=== PATIENT | male | born 1980 | race Caucasian/White ===

== ENCOUNTER 2018-10-29 20:47 | Emergency (ER) | payer SELFPAY ==
[~2018-10-29] VITALS: Ht 165.1 cm; Wt 81.6 kg
[2018-10-29] MEDS ORDERED: NS IV 1000 ML 1,000 ML IV ONE (22:54)
[2018-10-29 23:00] LABS: BASOPHILS % (AUTO) 1 % (0-10); EOSINOPHILS # (AUTO) 0.1 10^3/uL (0.0-0.3); EOSINOPHILS % (AUTO) 2 % (0-10); HEMATOCRIT 41 % (40-54); HEMOGLOBIN 13.8 G/DL (13.3-17.7); LYMPHOCYTES # (AUTO) 1.7 X 10^3 (1.0-4.0); LYMPHOCYTES % (AUTO) 25 % (12-44); MEAN CORPUSCULAR HEMOGLOBIN 30 PG (25-34); MEAN CORPUSCULAR HGB CONC 34 G/DL (32-36); MEAN CORPUSCULAR VOLUME 87 FL (80-99); MEAN PLATELET VOLUME 9.5 FL (7.4-10.4); MONOCYTES # (AUTO) 0.7 X 10^3 (0.0-1.0); MONOCYTES % (AUTO) 10 % (0-12); NEUTROPHILS # (AUTO) 4.5 X 10^3 (1.8-7.8); NEUTROPHILS % (AUTO) 63 % (42-75); PLATELET COUNT 249 10^3/uL (130-400); RED CELL DISTRIBUTION WIDTH 12.7 % (10.0-14.5); WHITE BLOOD COUNT 7.1 10^3/uL (4.3-11.0)
[2018-10-29 23:13] LABS: ALANINE AMINOTRANSFERASE 66 U/L (0-55); ALBUMIN 3.9 GM/DL (3.2-4.5); ALKALINE PHOSPHATASE 85 U/L (40-136); BILIRUBIN,TOTAL 0.2 MG/DL (0.1-1.0); BUN/CREATININE RATIO 16; CARBON DIOXIDE 22 MMOL/L (21-32); CHLORIDE 105 MMOL/L (98-107); CREATININE SERUM 1.15 MG/DL (0.60-1.30); GFR ESTIMATED > 60; GLUCOSE 123 MG/DL (70-105); LIPASE 14 U/L (8-78); POTASSIUM 3.8 MMOL/L (3.6-5.0); SODIUM 137 MMOL/L (135-145); TOTAL PROTEIN 7.6 GM/DL (6.4-8.2)
[2018-10-29 23:25] LABS: BILIRUBIN,URINE NEGATIVE (NEGATIVE); CLARITY,URINE CLEAR; COLOR,URINE YELLOW; GLUCOSE, URINE (UA) NEGATIVE (NEGATIVE); KETONES,URINE NEGATIVE (NEGATIVE); LEUKOCYTE ESTERASE ,URINE 1+ (NEGATIVE); NITRITE,URINE NEGATIVE (NEGATIVE); PH,URINE 6 (5-9); PROTEIN,URINE NEGATIVE (NEGATIVE); UROBILINOGEN,URINE NORMAL (NORMAL)
[2018-10-29 23:38] LABS: AMPHETAMINE SCREEN, URINE POSITIVE (NEGATIVE); BARBITURATE SCREEN URINE NEGATIVE (NEGATIVE); BENZODIAZEPINES SCREEN URINE NEGATIVE (NEGATIVE); CANNABINOID SCREEN, URINE POSITIVE (NEGATIVE); COCAINE SCREEN URINE NEGATIVE (NEGATIVE); METHADONE STAT NEGATIVE (NEGATIVE); METHAMPHETAMINE SCREEN URINE S NEGATIVE (NEGATIVE); OPIATE SCREEN URINE NEGATIVE (NEGATIVE); OXYCODONE STAT NEGATIVE (NEGATIVE); PROPOXYPHENE STAT NEGATIVE (NEGATIVE); TRICYCLIC ANTIDEPRESSANTS SCRE NEGATIVE (NEGATIVE)
[2018-10-29 23:54] LABS: BACTERIA,URINE TRACE /HPF; WBC,URINE RARE /HPF
[2018-10-30] MEDS ORDERED: RX-OSELTAMIVIR 75 MG (TAMIFLU) BOX OF 10 PO STA (01:12)
[2018-10-30] MEDS ORDERED: KETOROLAC 30 MG/ML VIAL IVP ONE (01:15)
--- NOTE | 2018-10-30 01:19 | ED General ---
General Chief Complaint: Abdominal/GI Problems Stated Complaint: BACK PAIN Nursing Triage Note: Woman with pt to window stating pt now could not breath. This nurse called pt back to triage. Woman stated pt was outside. This nurse went outside with wheelchair and found pt lying on the ground. With assistance, got pt in wheelchair. Pt c/o abdominal pain that began three weeks ago, worsening over the last week. Pt reports cough today and then hearing something pop followed by severe L flank and abdominal pain. Pt has purple discoloration to the left flank area. Pt describes pain as 20/10. Pt describes pain as "hot" and makes a "funny taste in mouth." Nursing Sepsis Screen: No Definite Risk Source of Information: Patient Exam Limitations: No Limitations History of Present Illness Date Seen by Provider: Oct 29, 2018 Time Seen by Provider: 22:48 Initial Comments This 38-year-old man presents to the emergency room with primary complaint of dizziness since last night. He denies fever. He complains of generalized body ache and some minor cough. He reports his urine has been darker than usual. He complains of pain particularly in the left lower chest and flank region. He feels short of breath and pain is worse with deep breathing. He denies any hematuria. He seems to be struggling with malaise and somnolence. He denies any drug or alcohol use. also reports his back has significant bruising on it. He denies any trauma. No bruising can be seen on exam. Allergies and Home Medications Allergies Coded Allergies: hydrocodone (Verified Allergy, Unknown, 10/29/18) Patient Home Medication List Home Medication List Reviewed: Yes Review of Systems Review of Systems Constitutional: see HPI EENTM: no symptoms reported Respiratory: see HPI Cardiovascular: no symptoms reported Gastrointestinal: see HPI Genitourinary: no symptoms reported Musculoskeletal: see HPI Skin: no symptoms reported Psychiatric/Neurological: See HPI Hematologic/Lymphatic: No Symptoms Reported Immunological/Allergic: no symptoms reported Past Kjdyfnf-Nosdaf-Nnynil Hx Past Med/Social Hx: Reviewed Nursing Past Med/Soc Hx Patient Social History Alcohol Use: Denies Use Recreational Drug Use: No Smoking Status: Current Everyday Smoker Type Used: Cigarettes 2nd Hand Smoke Exposure: Yes Recent Foreign Travel: No Contact w/Someone Who Travel: No Recent Infectious Disease Expo: No Recent Hopitalizations: No Physical Abuse: No Sexual Abuse: No Past Medical History Surgeries: Yes Orthopedic Respiratory: No Cardiac: No Neurological: No Genitourinary: No Gastrointestinal: No Musculoskeletal: No Endocrine: No HEENT: No Cancer: No Psychosocial: No Integumentary: No Blood Disorders: No Adverse Reaction/Blood Tranf: No Physical Exam Vital Signs Vital Signs - First Documented 10/29/18 21:20 Temp 98.2 Pulse 92 Resp 27 B/P (MAP) 153/86 (108) Pulse Ox 99 O2 Delivery Room Air Capillary Refill : Less Than 3 Seconds Height, Weight, BMI Height: 5'5.00" Weight: 180lbs. oz. 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, Other (malaise, somnolence) Skin: Warm/Dry, Other (flushed) Progress/Results/Core Measures Suspected Sepsis Recent Fever Within 48 Hours: No Infection Criteria Present: None New/Unexplained Altered Menta: No Sepsis Screen: No Definite Risk SIRS Temperature:98.2 Pulse: 92 Respiratory Rate: 27 Laboratory Tests 10/29/18 22:25: White Blood Count 7.1 Blood Pressure 153 /86 Mean: 108 Laboratory Tests 10/29/18 22:25: Creatinine 1.15, Platelet Count 249, Total Bilirubin 0.2 Results/Orders Lab Results Micro Results My Orders Orders - CECE CLANCY MD Iv [employer] Work[employer] (10/29/18 ) Medications Given in ED Vital Signs/I&O Capillary Refill : Less Than 3 Seconds Blood Pressure Mean: 108 Progress Note : Progress Note Workup was pursued. Labs were relatively unremarkable. Patient was found to have influenza B. He was treated with 1 L of IV normal saline and Toradol. A take-home pack of Tamiflu was dispensed and started. Diagnostic Imaging Diagonstic Imaging: Xray Plain Films/CT/US/NM/MRI: chest Comments Chest x-ray viewed by me and report not yet available. No acute abnormalities appreciated. Departure Impression Primary Impression: Influenza B Additional Impression: Abdominal wall pain Disposition: HOME, SELF-CARE Condition: Improved Departure-Patient Inst. Decision time for Depature: 13:10 Referrals: NO,LOCAL PHYSICIAN (PCP/Family) Primary Care Physician Patient Instructions: Flu Add. Discharge Instructions: Drink plenty of clear liquids. Take Tylenol (acetaminophen) up to 1000 mg every 6 hours as needed and/or ibuprofen up to 600 mg every 6 hours as needed for pain and fever. Complete the entire 10 doses of Tamiflu. Stay away from family and other individuals to prevent spread of influenza. Wear a mask if you have to be around others. Do not return to work until you are free of fever for a minimum of 24 hours without treating fever with medications. Return to care if you have worsening symptoms. All discharge instructions reviewed with patient and/or family. Voiced understanding. Work/School Note: Work Release Form Date Seen in the Emergency Department: Oct 30, 2018 Return to Work: Nov 01, 2018 Restrictions: Return-No Fever (24hrs) CECE CLANCY MD Oct 30, 2018 01:19
[2018-10-30 01:28] VITALS: BP 127/103
--- NOTE | 2018-10-30 06:27 | Diagnostic Imaging Report ---
INDICATION: Cough and congestion. PA and lateral views of the chest are obtained. FINDINGS: Heart size and pulmonary vascularity are within normal limits, and the lungs are clear, bilaterally. IMPRESSION: Unremarkable chest. Dictated by: Dictated on workstation # [id number]
== END 2018-10-30 01:28 | disposition home or self-care (01) ==
LOC: ER 20:49
DX: J10.1 Influenza due to other identified influenza virus with other respiratory manifestations (principal); R10.9 Unspecified abdominal pain; F17.210 Nicotine dependence, cigarettes, uncomplicated; Z88.5 Allergy status to narcotic agent
CPT/HCPCS: 36415; 71046; 80053; 80306; 80320; 81000; 83690; 85025; 87804; 96361; 96374

== ENCOUNTER 2022-10-02 09:46 | Emergency (ER) | payer SELFPAY ==
[~2022-10-02] VITALS: Ht 165 cm; Wt 97.0 kg
--- NOTE | 2022-10-02 10:50 | ED Lower Extremity ---
General Chief Complaint: Lower Extremity Stated Complaint: LT LEG PAIN Nursing Triage Note: PT STATES LT LEG PAIN, US DONE AT [facility] AND WAS SENT HERE, NEG FOR BLOOD CLOT. TORADOL SHOT GIVEN AT [facility] Source: patient Exam Limitations: no limitations History of Present Illness Date Seen by Provider: Oct 02, 2022 Time Seen by Provider: 10:38 Initial Comments 42yo male to the ER with a complaint of left knee pain and swelling and redness. Onset 2-3 days. He went to [facility] prior to the ER and had a venous doppler, reported negative to me by provider. Patient reports no history of clot, no recent travel or prolonged immobility. He has a history HTN, intermittently complaint with BP meds. He states the knee feels warm and it is red. Taking ibuprofen with some relief of symptoms. Hurts to walk on the leg. Points to the anterior knee in the region of the patellar tendon as the source of pain. Denies fever, shortness of breath, claudication symptoms. Onset: other (3d) Severity: severe Pain/Injury Location: left knee Method of Injury: unknown Modifying Factors: Worse With Movement Allergies and Home Medications Allergies Coded Allergies: hydrocodone (Verified Allergy, Unknown, 10/29/18) Patient Home Medication List Home Medication List Reviewed: Yes Colchicine (Colchicine) 0.6 Mg Capsule, 0.6 MG PO ONCE Prescribed by: BRENDAN CHARLES on 10/02/22 1255 Ibuprofen (Ibuprofen) 800 Mg Tablet, 800 MG PO Q8H PRN for PAIN Prescribed by: BRENDAN CHARLES on 10/02/22 1255 Tramadol HCl (Tramadol HCl) 50 Mg Tablet, 50 MG PO Q6H PRN for PAIN Prescribed by: BRENDAN CHARLES on 10/02/22 1255 Review of Systems Constitutional: see HPI EENTM: no symptoms reported Respiratory: no symptoms reported Cardiovascular: no symptoms reported Gastrointestinal: no symptoms reported Genitourinary: no symptoms reported Musculoskeletal: joint pain (left knee) Skin: other (slightly reddened and warm left knee) All Other Systems Reviewed Negative Unless Noted: Yes Past Suxwlwb-Amlvsk-Crlprj Hx Patient Social History Tobacco Use?: Yes Tobacco type used: Cigarettes Smoking Status: Current Everyday Smoker Past Medical History Surgery/Hospitalization HX: ANXIETY, HTN Surgeries: Yes Orthopedic Respiratory: No Cardiac: No Neurological: No Genitourinary: No Gastrointestinal: No Musculoskeletal: No Endocrine: No HEENT: No Cancer: No Psychosocial: No Integumentary: No Blood Disorders: No Adverse Reaction/Blood Tranf: No Physical Exam Vital Signs Vital Signs - First Documented 10/02/22 10:07 Temp 36.8 Pulse 96 Resp 20 B/P (MAP) 189/126 (147) Pulse Ox 97 O2 Delivery Room Air Capillary Refill : Less Than 3 Seconds Height, Weight, BMI Height: 5'5.00" Weight: 180lbs. oz. 81.243933bv; 35.00 BMI Method:Stated General Appearance: WD/WN, no apparent distress HEENT: PERRL/EOMI Cardiovascular: regular rate, rhythm Respiratory: no respiratory distress, no accessory muscle use Hips: bilateral hip non-tender, bilateral hip normal inspection, bilateral hip normal range of motion, bilateral hip no evidence of injury Legs: bilateral leg non-tender, bilateral leg normal inspection, bilateral leg normal range of motion, bilateral leg no evidence of injury Knees: right knee non-tender, right knee normal inspection, right knee normal range of motion, right knee no evidence of injury; left knee bone tenderness (over patellar tendon), left knee joint effusion, left knee pain, left knee swelling, left knee other (warmth) Ankles: bilateral ankle non-tender, bilateral ankle normal inspection, bilateral ankle normal range of motion, bilateral ankle no evidence of injury Feet: bilateral foot non-tender, bilateral foot normal inspection, bilateral foot normal range of motion, bilateral foot no evidence of injury Neurologic/Psychiatric: alert, normal mood/affect, oriented x 3 Skin: normal color, warm/dry, other (left knee warm and mildly erythematous, extend down approximately 2/3 anterior cabrera) Progress/Results/Core Measures Results/Orders Lab Results Laboratory Tests Test 10/02/22 11:00 Range/Units White Blood Count 10.8 4.3-11.0 10^3/uL Red Blood Count 5.08 4.30-5.52 10^6/uL Hemoglobin 14.8 13.3-17.7 g/dL Hematocrit 43 40-54 % Mean Corpuscular Volume 85 80-99 fL Mean Corpuscular Hemoglobin 29 25-34 pg Mean Corpuscular Hemoglobin Concent 34 32-36 g/dL Red Cell Distribution Width 13.0 10.0-14.5 % Platelet Count 281 130-400 10^3/uL Mean Platelet Volume 9.2 9.0-12.2 fL Immature Granulocyte % (Auto) 0 % Neutrophils (%) (Auto) 70 42-75 % Lymphocytes (%) (Auto) 20 12-44 % Monocytes (%) (Auto) 8 0-12 % Eosinophils (%) (Auto) 2 0-10 % Basophils (%) (Auto) 1 0-10 % Neutrophils # (Auto) 7.6 1.8-7.8 10^3/uL Lymphocytes # (Auto) 2.1 1.0-4.0 10^3/uL Monocytes # (Auto) 0.8 0.0-1.0 10^3/uL Eosinophils # (Auto) 0.2 0.0-0.3 10^3/uL Basophils # (Auto) 0.1 0.0-0.1 10^3/uL Immature Granulocyte # (Auto) 0.0 0.0-0.1 10^3/uL Sodium Level 137 135-145 MMOL/L Potassium Level 3.8 3.6-5.0 MMOL/L Chloride Level 103 98-107 MMOL/L Carbon Dioxide Level 23 21-32 MMOL/L Anion Gap 11 5-14 MMOL/L Blood Urea Nitrogen 20 H 7-18 MG/DL Creatinine 1.35 H 0.60-1.30 MG/DL Estimat Glomerular Filtration Rate 67 BUN/Creatinine Ratio 15 Glucose Level 86 70-105 MG/DL Uric Acid 4.5 2.6-7.2 MG/DL Calcium Level 9.6 8.5-10.1 MG/DL My Orders Orders - BRENDAN CHARLES MD Ed Iv/Invasive Line Start (10/02/22 10:47) Uric Acid (10/02/22 10:47) Cbc With Automated Diff (10/02/22 10:47) Basic Metabolic Panel (10/02/22 10:47) Knee, Left, 3 Views (10/02/22 10:47) Lidocaine 1% Inj 20 Ml (Xylocaine 1% Inj (10/02/22 12:00) Lidocaine 1% Inj 10 Ml (Xylocaine 1% Inj (10/02/22 12:11) Ibuprofen Tablet (Motrin Tablet) (10/02/22 13:00) Colchicine Tablet (Colcrys Tablet) (10/02/22 13:00) Vital Signs/I&O 10/02/22 10/02/22 10/02/22 10:07 13:02 13:07 Temp 36.8 36.8 36.8 Pulse 96 96 Resp 20 20 B/P (MAP) 189/126 (147) 189/126 Pulse Ox 97 97 O2 Delivery Room Air Room Air Blood Pressure Mean: 147 Progress Progress Note : Time: 12:30 Progress Note Patient seen and evaluated by me. Eval includes Xray left knee, CBC. BMP and uric acid. Exam pertinent for tender, warm left knee with palpable effusion. ROM is adequate and while slightly painful, not indicative of Joint infection. Tenderness over the patellar tendon. Joint stable. erythema to anterior cabrera. Distal NVI. DDx based on H&P would be possible septic joint, gout/pseudogout, osteoarthritis. Labs reviewed - CBC normal, BMP - slightly decreased renal function. Uric acid normal. Xray of left knee normal. Low clinical suspicion for septic joint or cellulitis (normal CBC and afebrile. No skin insults that would have served as a nidus for infection. Patient is not a diabetic. No previous injury to knee. A little young for severe degenerative arthritis. Suspect gout/pseudogout I attempted aspiration of the left knee joint to obtain fluid to dx gout - highest on my differential. Knee was prepped in sterile fashion with betadine prep and alcohol. 27g needle used to enter the knee joint from the lateral knee easily. infiltrated 3ml total from joint space to the skin. 20g needle then used to try and enter joint space. This was unsuccessful x4 attempts. At this point I decided to presumptively treat with colchicine and pain medications. I strongly encouraged follow up with his PCP and gave him referral information for Dr Luna. REturn precautions provided, if the knee becomes more painful, hot/red or her develops fever to return to the ER for re-evaluation. He is comfortable with the plan of care. I did encourage reduction of red meat and educated on Gout diet. Diagnostic Imaging Diagonstic Imaging: Xray Comments [facility] [place], [place] NAME: GEORGES LEE [facility] REC#: [id number] PT STATUS: REG ER : 1980 PHYSICIAN: BRENDAN CHARLES MD ADMIT DATE: 10/02/22/ER Signed Date of Exam:10/02/22 KNEE, LEFT, 3 VIEWS KNEE, LEFT, 3 VIEWS COMPARISON: None available. INDICATION: Knee pain TECHNIQUE: Non-weight bearing AP, oblique, and lateral views of the left knee. FINDINGS: No fracture or traumatic malalignment. The joint spaces are well maintained. Small knee joint effusion. No mineralized joint bodies. IMPRESSION: No acute osseous abnormality. Dictated by: Dictated on workstation # [id number] Dict: 10/02/22 1147 Trans: 10/02/22 1147 [facility] [id number] Interpreted by: DYLAN VALIENTE MD Electronically signed by: DYLAN VALIENTE MD 10/02/22 1147 Departure Impression Primary Impression: Acute knee pain Qualified Codes: M25.562 - Pain in left knee Disposition: HOME, SELF-CARE Condition: Stable Departure-Patient Inst. Decision time for Depature: 12:49 Referrals: [facility] [place]LOCAL PHYSICIAN (PCP) Primary Care Physician PEDRO LUNA MD Patient Instructions: Gout ED Add. Discharge Instructions: Take ibuprofen 800mg every 8 hours as needed for pain. Always take ibuprofen with food. Take another dose of the colchicine in 1 hour (after the dose in the ER). You will not need to take anymore. Tramadol 50mg, 1 every 6 hours as needed for pain. If your leg becomes more red, swollen, or you develop a fever, please come back to the Emergency Department for re-evaluation. Please follow up with [facility] for further monitoring of your blood pressure and for re-evaluation of your knee. Scripts Ibuprofen (Ibuprofen) 800 Mg Tablet 800 MG PO Q8H PRN for PAIN, #30 TAB 0 Refills take with food Prov: BRENDAN CHARLES MD 10/02/22 Tramadol HCl (Tramadol HCl) 50 Mg Tablet 50 MG PO Q6H PRN for PAIN, #12 TAB 0 Refills Prov: BRENDAN CHARLES MD 10/02/22 Colchicine (Colchicine) 0.6 Mg Capsule 0.6 MG PO ONCE, #1 CAP Prov: BRENDAN CHARLES MD 10/02/22 BRENDAN CHARLES MD Oct 02, 2022 10:50
[2022-10-02 11:11] LABS: BASOPHILS # (AUTO) 0.1 10^3/uL (0.0-0.1); BASOPHILS % (AUTO) 1 % (0-10); EOSINOPHILS # (AUTO) 0.2 10^3/uL (0.0-0.3); EOSINOPHILS % (AUTO) 2 % (0-10); HEMATOCRIT 43 % (40-54); HEMOGLOBIN 14.8 g/dL (13.3-17.7); LYMPHOCYTES # (AUTO) 2.1 10^3/uL (1.0-4.0); LYMPHOCYTES % (AUTO) 20 % (12-44); MEAN CORPUSCULAR HEMOGLOBIN 29 pg (25-34); MEAN CORPUSCULAR HGB CONC 34 g/dL (32-36); MEAN CORPUSCULAR VOLUME 85 fL (80-99); MEAN PLATELET VOLUME 9.2 fL (9.0-12.2); MONOCYTES # (AUTO) 0.8 10^3/uL (0.0-1.0); MONOCYTES % (AUTO) 8 % (0-12); NEUTROPHILS # (AUTO) 7.6 10^3/uL (1.8-7.8); NEUTROPHILS % (AUTO) 70 % (42-75); PLATELET COUNT 281 10^3/uL (130-400); WHITE BLOOD COUNT 10.8 10^3/uL (4.3-11.0)
[2022-10-02 11:24] LABS: POTASSIUM 3.8 MMOL/L (3.6-5.0)
[2022-10-02 11:25] LABS: CALCIUM 9.6 MG/DL (8.5-10.1)
[2022-10-02 11:30] LABS: CREATININE SERUM 1.35 MG/DL (0.60-1.30)
[2022-10-02 11:32] LABS: URIC ACID 4.5 MG/DL (2.6-7.2)
--- NOTE | 2022-10-02 11:48 | Diagnostic Imaging Report ---
KNEE, LEFT, 3 VIEWS COMPARISON: None available. INDICATION: Knee pain TECHNIQUE: Non-weight bearing AP, oblique, and lateral views of the left knee. FINDINGS: No fracture or traumatic malalignment. The joint spaces are well maintained. Small knee joint effusion. No mineralized joint bodies. IMPRESSION: No acute osseous abnormality. Dictated by: Dictated on workstation # [id number]
[2022-10-02] MEDS ORDERED: LIDOCAINE 1% INJ 20 ML VIAL INJ ONE (12:00)
[2022-10-02] MEDS ORDERED: LIDOCAINE 1% INJ 10 ML VIAL ONE (12:11)
[2022-10-02] MEDS ORDERED: COLC0.6C3 PO (12:55)
[2022-10-02] MEDS ORDERED: IBUP-1780 PO (12:55)
[2022-10-02] MEDS ORDERED: TRM50T PO (12:55)
[2022-10-02] MEDS ORDERED: IBUPROFEN 800 MG (MOTRIN) TAB PO ONE (13:00)
[2022-10-02] MEDS ORDERED: COLCHICINE 0.6 MG (COLCRYS) TABLET PO ONE (13:00)
[2022-10-02 13:07] VITALS: BP 189/126
== END 2022-10-02 13:07 | disposition home or self-care (01) ==
LOC: EDUNIT# 09:46 → ER 09:51
DX: M25.562 Pain in left knee (principal); I10 Essential (primary) hypertension; F17.210 Nicotine dependence, cigarettes, uncomplicated; Z91.14 Patient's other noncompliance with medication regimen
CPT/HCPCS: 36415; 73562; 80048; 84550; 85025; 99284